=== PATIENT | female | born 1990 | race Two or more races ===

== ENCOUNTER → 2023-12-07 04:00 | Outpatient (CLI) | payer MEDICAID, SELFPAY ==
--- NOTE | 2023-12-07 07:45 | DI.US_ITS ---
Exam(s) US OB JOSEFA WEIGHT EXAM: US OB JOSEFA WEIGHT CLINICAL HISTORY: fluid check, weight,polyhydramnios,O40.3xx0. TECHNIQUE: Transabdominal obstetrical ultrasound was performed. COMPARISON: No exams were available for comparison FINDINGS: There is a single viable intrauterine gestation with cardiac activity identified-129 bpm The fetus is presently in breech position . Amniotic fluid: There is polyhydramnios, with JOSEFA of 39 cm Placental location: The placenta is fundal grade 2,with no evidence of placenta previa. There is a prominent uterine fibroid in the anterior aspect of the lower uterine segment which measur es 11 x 9 x [address]. [address] this at approximately 30 weeks gestational age, implying KEYSHA of 05/2024. BPD measures 30 weeks and 3 days HC measures 31 weeks AC measures 29 weeks and 2 days FL measures 29 weeks and 2 days Estimated weight is 1411 gm-3 pounds, 2 ounces Fetus is at the 46th percentile on the Hadlock scale. IMPRESSION:: Viable intrauterine gestation, as described above. Polyhydramnios evident with JOSEFA= 39 cm There is also a prominent anterior myometrial fibroid in lower uterine segment measuring 11 x 9 x 8 c m. DATA REPOSITORY:
== END ==
PROVIDERS: Visit Provider Advanced Practice Midwife
DX: O40.3XX1 Polyhydramnios, third trimester, fetus 1 (principal); Z3A.30 30 weeks gestation of pregnancy
CPT/HCPCS: 76816

== ENCOUNTER 2023-12-07 05:19 | Outpatient (CLI) | payer MEDICAID, SELFPAY ==
[2023-12-07 12:05] LABS: HCT 37.2 % (36.0-46.0); HGB 12.3 g/dL (11.2-15.7); MCH 27.3 pg (27.0-33.0); MCHC 33.1 % (32.0-36.0); MCV 83 fL (80-95); RDW 19.6 % (11.7-14.6); RDW-SD 58.4 fL; WBC 5.91 10^3/uL (4.4-10.8)
[2023-12-07 12:16] LABS: Glucose,1 Hr (Glucola) 110 mg/dL (80-140)
[2023-12-07 12:29] LABS: Platelet Count 152 10^3/uL (130-400)
== END 2023-12-07 05:20 | disposition home or self-care (01) ==
LOC: LBO 05:19
PROVIDERS: Visit Provider Advanced Practice Midwife
DX: Z34.93 Encounter for supervision of normal pregnancy, unspecified, third trimester (principal); Z3A.29 29 weeks gestation of pregnancy
CPT/HCPCS: 36415; 82950; 85027; 86215; 86850; 86900; 86901; 90384; 86870; 86880; 86886; 86976

== ENCOUNTER 2024-02-08 13:27 | Outpatient (REF) | payer MEDICAID, SELFPAY | END 2024-02-08 13:28 | disposition home or self-care (01) | LOC: LBN 13:27 | PROVIDERS: Visit Provider Obstetrics & Gynecology | DX: Z34.93 Encounter for supervision of normal pregnancy, unspecified, third trimester (principal); Z3A.38 38 weeks gestation of pregnancy; Z36.85 Encounter for antenatal screening for Streptococcus B | CPT/HCPCS: 87081 ==

== ENCOUNTER → 2024-03-15 01:14 | Outpatient (CLI) | payer MEDICAID, SELFPAY ==
--- NOTE | 2024-03-15 09:45 | DI.US_ITS ---
Exam(s) US PELVIS TRANSVAGINAL EXAM: US PELVIS TRANSVAGINAL CLINICAL HISTORY: pain and bleeding, Z39.2; leiomyoma of uterus, D25.9 TECHNIQUE: Transabdominal and transvaginal imaging was performed using standard protocol. COMPARISON: US US OB JOSEFA WEIGHT from 12/07/2023 FINDINGS: UTERUS: Anteverted. 15 by 10 x 12 cm cm Endometrium: Not visualized Myometrium: Large fibroid measuring 11 x 10 x 11 cm. Cervix: Unremarkable. OVARIES: Neither ovary was visualized. DOPPLER: Color: Symmetric and uniform flow to both ovaries. No hyperemia. CUL-DE-SAC: Free fluid: None. IMPRESSION: Large uterine fibroid. Ovaries were not visualized. DATA REPOSITORY:
== END ==
PROVIDERS: Visit Provider Obstetrics & Gynecology
DX: D25.9 Leiomyoma of uterus, unspecified (principal); Z39.2 Encounter for routine postpartum follow-up
CPT/HCPCS: 76830; 76856

== ENCOUNTER 2025-01-24 11:55 | Emergency (ER) | payer MEDICAID, SELFPAY ==
[2025-01-24 12:18] VITALS: BP 110/75; PULSE 108; RESP 20; TEMP 37.3; O2SAT 98
--- NOTE | 2025-01-24 12:30 | DI.US_ITS ---
Exam(s) US ABDOMEN RENAL EXAM: US ABDOMEN RENAL CLINICAL HISTORY: RUQ tenderness, dysuria TECHNIQUE: Ultrasound abdomen performed using standard protocol. COMPARISON: No exams were available for comparison FINDINGS: ABDOMINAL AORTA AND IVC: Visualized portions normal caliber. PANCREAS: Normal where visualized. LIVER: Normal. Hepatopetal flow in the Portal Vein. The liver measures 15.5cm long.No hepatic mass is seen sonographically. GALLBLADDER: Multiple gallstones are present. No evidence of wall thickening. No pericholecystic fluid identified. BILIARY SYSTEM: Common bile duct measures < 7 mm. No intrahepatic biliary ductal dilation. RENDON'S SIGN: Negative. SPLEEN: Not enlarged. ASCITES: None seen. Renal size in cm: Right: 9.4. Left: 9.4. Echogenicity: Normal. Hydronephrosis: No. Cyst or mass: No. Nephrolithiasis: No. Other findings: None. Bladder:Normal. Ureteral jets: Right: Visualized and unremarkable. Left: Visualized and unremarkable. Prevoid vol:181 cc Postvoid vol:0 cc Renal color flow: Symmetric and within normal limits. IMPRESSION: 1. Cholelithiasis. No sonographic evidence to suggest acute cholecystitis. 2. Unremarkable renal ultrasound. DATA REPOSITORY:
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
[2025-01-24 12:57] VITALS: BP 110/75; PULSE 108; RESP 20; TEMP 37.3; O2SAT 98
[2025-01-24 13:06] LABS: Abs Immature Grans 0.01 10^3/uL (0.0-0.06); Absolute Basophil Count 0.02 10^3/uL (0.0-0.2); Absolute Lymphocyte Count 0.95 10^3/uL (1.2-3.4); Absolute Monocyte Count 0.59 10^3/uL (0.1-0.8); Absolute Neutrophil Count 5.15 10^3/uL (1.2-6.7); Basophils % 0.3 %; HCT 40.3 % (36.0-46.0); HGB 13.2 g/dL (11.2-15.7); Immature Grans % 0.1 %; Lymphocytes % 14.1 %; MCH 28.2 pg (27.0-33.0); MCHC 32.8 % (32.0-36.0); MCV 86 fL (80-95); MPV 11.1 fL (8.0-11.0); Monocytes % 8.8 %; Neutrophils % 76.7 %; Platelet Count 162 10^3/uL (130-400); RBC 4.68 10^6/uL (3.93-5.22); RDW 12.6 % (11.7-14.6); WBC 6.72 10^3/uL (4.4-10.8)
[2025-01-24 13:08] LABS: Bilirubin Small (Negative); Blood Small (Negative); Clarity Sl Cloudy (Clear); Glucose Negative (Negative); Ketones >=160 mg/dL (Negative); Leukocyte Esterase Moderate (Negative); Nitrite Negative (Negative); Specific Gravity 1.025 (1.005-1.025); Urobilinogen 0.2 mg/dL (Up to 0.2); pH 5.5 (5-8)
[2025-01-24] MEDS: Ondansetron O.D.T. 4 MG TABEF PO (13:13)
[2025-01-24] MEDS: Acetaminophen 500 MG TAB 1000 MG PO (13:13)
[2025-01-24 13:15] LABS: Bacteria Few HPF (Negative); C & S Indicated? Yes; Casts Negative LPF (Negative); Crystals Negative HPF (Negative); Epithelial Cells Few HPF (Negative); Mucus Moderate (Negative); WBC >50 HPF (0-5)
--- NOTE | 2025-01-24 13:37 | DI.US_ITS ---
Exam(s) US PELVIS EXAM: US PELVIS TRANSVAGINAL CLINICAL HISTORY: non-obs, suprapubic firmness, pain, known fibroid. TECHNIQUE: Transabdominal pelvic ultrasound was performed using standard protocol. COMPARISON: US US PELVIS TRANSVAGINAL from 03/15/2024 FINDINGS: UTERUS: Position: Anteverted. Size: 13.5 long by 9.8 AP by 8.7 transverse cm Endometrium: The endometrium could not be visualized due to the large fibroid. Myometrium: There is a large fibroid seen in the fundus and body. It measures 8.8 x 7.6 x 7.7 cm. Cervix: Unremarkable. OVARIES: Right: 2.9 x 2.1 x 2.6 cm Cyst or mass: No suspicious cystic or solid masses. Left: 3.6 x 2.2 x 3.0 cm Cyst or mass: No suspicious cystic or solid masses. DOPPLER: Color: Symmetric and uniform flow to both ovaries. CUL-DE-SAC: Free fluid: None. Other: None. IMPRESSION: 1. Large 8.8 x 7.6 x 7.7 cm uterine fibroid. 2. Unremarkable bilateral ovaries. DATA REPOSITORY:
[2025-01-24 13:41] LABS: ALT 21 U/L (14-59); AST 15 U/L (15-37); Albumin 3.8 g/dL (3.4-5.0); Alkaline Phosphatase 89 U/L (46-116); BUN 9 mg/dL (7-18); Bilirubin, Total 2.3 mg/dL (0.2-1.0); CREATININE 0.9 mg/dL (0.55-1.02); Calcium 9.7 mg/dL (8.5-10.1); Chloride 102 mmol/L (98-107); Estimated GFR 87.11 (mL/min/1.73m2); Glucose 73 mg/dL (74-106); Lipase 19 U/L (<78); Magnesium 1.8 mg/dL (1.8-2.4); Potassium 3.4 mmol/L (3.5-5.1); Sodium 137 mmol/L (136-145); Total Protein 7.9 g/dL (6.4-8.2)
[2025-01-24 14:10] VITALS: PULSE 95
[2025-01-24 16:09] LABS: Bilirubin, Direct 0.3 mg/dL (0.0-0.2)
[2025-01-24 16:23] VITALS: BP 121/84; PULSE 84; RESP 16; TEMP 36.9; O2SAT 98
[2025-01-25 12:15] LABS: Chlamydia Result Negative (Negative); GC Result Negative (Negative)
== END 2025-01-24 16:24 | disposition home or self-care (01) ==
PROVIDERS: Emergency Provider Physician Assistant
DX: N39.0 Urinary tract infection, site not specified (principal); N76.0 Acute vaginitis; B96.89 Other specified bacterial agents as the cause of diseases classified elsewhere
CPT/HCPCS: 76770; 80053; 81025; 83690; 87077; 87491; 87591; 99284; 76700; 76856; 81003; 81015; 82248; 83605; 83735; 85025; 87086; 87186; 87480; 87510; 87660

== ENCOUNTER 2025-02-27 11:17 | Outpatient (CLI) | payer MEDICAID, SELFPAY ==
[2025-02-27 10:52] LABS: ESR 3 mm/hr (0-20)
[2025-02-27 10:53] LABS: HCT 38.9 % (36.0-46.0); HGB 12.6 g/dL (11.2-15.7); MCH 28.5 pg (27.0-33.0); MCHC 32.4 % (32.0-36.0); MCV 88 fL (80-95); MPV 11.6 fL (8.0-11.0); Platelet Count 162 10^3/uL (130-400); RBC 4.42 10^6/uL (3.93-5.22); RDW 13.6 % (11.7-14.6); RDW-SD 44.2 fL; WBC 3.86 10^3/uL (4.4-10.8)
[2025-02-27 11:27] LABS: ALT 18 U/L (14-59); AST 11 U/L (15-37); Albumin 3.8 g/dL (3.4-5.0); Alkaline Phosphatase 88 U/L (46-116); Anion Gap 7.2 mmol/L (3-11); BUN 9 mg/dL (7-18); Bilirubin, Total 0.6 mg/dL (0.2-1.0); CO2 27.8 mmol/L (21.0-32.0); Calcium 9.3 mg/dL (8.5-10.1); Chloride 109 mmol/L (98-107); Estimated GFR 122.23 (mL/min/1.73m2); Glucose 86 mg/dL (74-106); Potassium 4.1 mmol/L (3.5-5.1); Sodium 144 mmol/L (136-145); Total Protein 7.2 g/dL (6.4-8.2)
[2025-02-27 11:39] LABS: Lipase 43 U/L (<78)
[2025-02-27 11:40] LABS: C-Reactive Protein < 0.50 mg/dL (<or=0.5)
[2025-03-04 22:21] LABS: Galactose-alpha-1,3 IgE <0.10 kU/L (<0.70)
== END 2025-02-27 11:18 | disposition home or self-care (01) ==
LOC: LBO 11:17
PROVIDERS: Visit Provider Surgery
DX: R10.9 Unspecified abdominal pain (principal); R14.0 Abdominal distension (gaseous); K80.20 Calculus of gallbladder without cholecystitis without obstruction
CPT/HCPCS: 36415; 80053; 83690; 85027; 85652; 86003; 86140

== ENCOUNTER 2025-05-06 16:38 | Outpatient (REF) | payer MEDICAID, SELFPAY ==
[2025-05-06 15:39] LABS: Abs Immature Grans 0.00 10^3/uL (0.0-0.06); HCT 37.6 % (36.0-46.0); HGB 12.5 g/dL (11.2-15.7); Immature Grans % 0.0 %; MCH 28.5 pg (27.0-33.0); MCHC 33.2 % (32.0-36.0); MCV 86 fL (80-95); MPV 11.9 fL (8.0-11.0); Platelet Count 249 10^3/uL (130-400); RBC 4.38 10^6/uL (3.93-5.22); RDW 12.9 % (11.7-14.6); RDW-SD 40.2 fL; WBC 3.99 10^3/uL (4.4-10.8)
[2025-05-06 16:07] LABS: TSH (W/Ref FT4) 1.37 uIU/mL (0.36-3.74)
== END 2025-05-06 16:39 | disposition home or self-care (01) ==
LOC: LBN 16:38
PROVIDERS: Visit Provider Nurse Practitioner Family
DX: N93.9 Abnormal uterine and vaginal bleeding, unspecified (principal); N89.8 Other specified noninflammatory disorders of vagina
CPT/HCPCS: 84443; 85025; 87480; 87510; 87660

== ENCOUNTER 2025-05-22 18:27 | Outpatient (REF) | payer MEDICAID, SELFPAY ==
--- NOTE | 2025-05-22 15:35 | PAPFT_PTH ---
PATIENT: Sherron Aponte LOC: [facility] U#:[id number] AGE/SX: 34/F ROOM: RE05/22/[address]: Brittani Espinoza MD : 1990 BED: DIS: 05/22/2025 SPEC #: [id number] RECD: 05/22/25 18:39 STATUS: URBAN REQ #: [id number] KASH: 05/22/25 15:[address]: Brittani Espinoza DEPT: [facility] Cytology RECD BY: Arlet Garza ENTERED: 05/22/25 18:40 SP TYPE: PAPFT OTHR DR: Unknown,Unknown Tissues: 1 - CX/ENDOCX FOR PAP SMEARS Procedures: PAP THIN PREP/UVM Screening HPV DNA PROBE Comments: [id number] (HPV 16 & 18/45)
== END 2025-05-22 18:28 | disposition home or self-care (01) ==
LOC: LBN 18:27
PROVIDERS: Visit Provider Obstetrics & Gynecology
DX: Z12.4 Encounter for screening for malignant neoplasm of cervix (principal)
CPT/HCPCS: 88142; 87624

== ENCOUNTER 2025-05-27 02:32 | Outpatient (CLI) | payer MEDICAID, SELFPAY ==
--- NOTE | 2025-05-27 | DI.US_ITS ---
Exam(s) US PELVIS TRANSVAGINAL EXAM: US PELVIS TRANSVAGINAL CLINICAL HISTORY: ABNL UTERINE BLEEDING N93.9. TECHNIQUE: Transabdominal and transvaginal pelvic ultrasound was performed using standard protocol. COMPARISON: US US PELVIS from 01/24/2025 FINDINGS: UTERUS: Position: Anteverted. Size: 15.1 long by 9.5 AP by 9.1 transverse cm Endometrium: 1.1 cm. Normal for patient's menstrual status. Myometrium: There is again seen a large uterine fibroid anteriorly measuring 9.9 x 7.4 x 8.1 cm. Cervix: Unremarkable. OVARIES: Right: 3.6 x 1.7 x 2.3 cm Cyst or mass: No suspicious cystic or solid masses. Left: 4.7 x 3.6 x 4.7 cm Cyst or mass: No suspicious cystic or solid masses. There is a 4.1 x 3.0 x 3.7 cm simple cyst on the left ovary. This is likely physiologic. DOPPLER: Color: Symmetric and uniform flow to both ovaries. CUL-DE-SAC: Free fluid: None. Other: None. IMPRESSION: 1. Large uterine fibroid measuring 9.9 x 7.4 x 8.1 cm. 2. 4.1 x 3.0 x 3.7 cm simple cyst on the left ovary. This is likely physiologic. A follow-up pelvic ultrasound in 6 8 weeks should be considered to document resolution of the ovarian cyst. DATA REPOSITORY:
== END 2025-05-27 02:52 ==
LOC: DI 02:34
PROVIDERS: Visit Provider Nurse Practitioner Family
DX: N93.9 Abnormal uterine and vaginal bleeding, unspecified (principal); D25.1 Intramural leiomyoma of uterus
CPT/HCPCS: 76830; 76856

== ENCOUNTER 2025-05-27 13:31 | Emergency (ER) | payer MEDICAID, SELFPAY ==
[2025-05-27 13:32] VITALS: BP 97/63; PULSE 74; RESP 18; TEMP 36.8; O2SAT 98
[2025-05-27 14:00] LABS: Glucose Negative (Negative)
[2025-05-27 14:09] LABS: C & S Indicated? No
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
[2025-05-27 15:17] VITALS: BP 97/63; PULSE 74; RESP 18; TEMP 36.8; O2SAT 98
--- NOTE | 2025-05-29 08:28 | NUR.NOTE ---
Accessed Pt chart to document anitbiotics given on the Specimen Report. Report was given to the Providers.
== END 2025-05-27 15:18 | disposition home or self-care (01) ==
PROVIDERS: Emergency Provider Emergency Medicine
DX: R30.0 Dysuria (principal)
CPT/HCPCS: 99283 ×2; 81025; 87077; 81003; 81015; 87086; 87186